=== PATIENT | female | born 1995 | race Caucasian/White ===

== ENCOUNTER 2017-03-09 18:09 | Inpatient (IN) | payer OTHER ==
[~2017-03-09] VITALS: Ht 162.6 cm; Wt 86.0 kg
[2017-03-09] VITALS (65 sets, daily range): BP systolic 118–146; BP diastolic 68–95; PULSE 74–215; RESP 16–20; TEMP 98.2–99
[~2017-03-09 18:09] MED LIST: Z.0.NO CURRENT MEDS
[2017-03-09] MEDS ORDERED: PREN1TAB45 (19:03)
--- NOTE | 2017-03-09 19:04 | PD ---
HPI Chief Complaint SROM 40 weeks and 1 day Date Seen: Mar 09, 2017 Time Seen: 18:55 Travel History International Travel<30 Days: No Contact w/Intl Traveler<30Days: No Known Affected Area: No History of Present Illness HPI Pt is a 21 yo at 40 weeks and 1 day. Presents with SROM at 06:00 Pt reports active movements. No vaginal bleeding No fevers. care with Linda Alas. GBS negative. Weeks Gestation: 40 Para: 0 : 1 Last Menstrual Period: Jun 01, 2016 History Past Medical History Medical History: Denies Significant Hx Past Surgical History Surgical History: No Previous Surgery Family History Family History: Negative Social History Alcohol Use: No Tobacco Use: No Substance Abuse: No Allergies-Medications (Allergen,Severity, Reaction): Coded Allergies: No Known Allergies (Unverified , 09/20/11) Home Meds Reported Medications Miscellaneous (No Current Meds) Misc 09/20/11 Review of Systems Except as stated in HPI: all other systems reviewed are Neg Physical Exam Narrative GENERAL: Well-nourished, well-developed patient. SKIN: Warm and dry. HEAD: Normocephalic and atraumatic. EYES: No scleral icterus. No injection or drainage. ENT: No nasal drainage noted. Mucous membranes pink. Airway patent. NECK: Supple, trachea midline. No JVD. CARDIOVASCULAR: Regular rate and rhythm without murmurs, gallops, or rubs. RESPIRATORY: Breath sounds equal bilaterally. No accessory muscle use. BREASTS: Bilateral exam showed no masses , no retractions, no nipple discharge. ABDOMEN/GI: Abdomen soft, non-tender, bowel sounds present, no rebound, no guarding Gravid to [39] weeks size Fundal Height: [-] GENITOURINARY: External Genitalia: intact and normal in appearance BUS glands: [wnl] Cervix: [soft] Dilatation: [1cm] Effacement: [60%] Station: [-3] Presentation: [vertex] Membranes: [ruptured] Uterine Contractions: [rare-] FHT's: Category: [1] Baseline: [-] Reactive: [-] Variability: [-] Decels: [rare] EXTREMITIES: No cyanosis or edema. BACK: Nontender without obvious deformity. No CVA tenderness. NEUROLOGICAL: Awake and alert. Motor and sensory grossly within normal limits. Five out of 5 muscle strength in all muscle groups. Normal speech. Data Data Vital Signs Reviewed: Yes Group B Strep: Negative MDM Medical Record Reviewed: Yes Interpretation(s) Premature ruptured membranes at term. Plan 21 yo at 40 weeks and 1 day, with SROM. GBS negative. Minimal cervical dilatation. Admit for labor. Start Pitocin per protocol. Expectant. Attending Attestation Admitted to labor and delivery with expectation of at least 2 midnight stay Diagnosis Diagnosis: Primary Impression: Ruptured, membranes, premature Additional Impressions: 40 weeks gestation of Admitted to labor and delivery Roosevelt Rosario MD Mar 09, 2017 19:04
[2017-03-09] MEDS ORDERED: LACTATED RINGER'S 1000 ML INJ 1,000 ML IV PRN (19:08)
[2017-03-09] MEDS: LACTATED RINGER'S 1000 ML INJ 1,000 ML IV SCH ×2 (19:08→20:06)
[2017-03-09] MEDS ORDERED: SODIUM CHLORID 0.9% 500 ML INJ 500 ML IV PRN (19:15)
[2017-03-09] MEDS ORDERED: OXYTOCIN 30 UNITS-500ML PREMIX 500 ML IV ONE (19:15)
[2017-03-09] MEDS ORDERED: ONDANSETRON HCL 4 MG/2 ML VIAL IV PRN (19:15)
[2017-03-09] MEDS ORDERED: CITRIC ACID-SODIUM CITRATE LIQ 30 ML UDC PO SCH (19:15)
[2017-03-09] MEDS ORDERED: MINERAL OIL 10 ML VIAL TOPICAL PRN (19:15)
[2017-03-09] MEDS ORDERED: LIDOCAINE HCL 1% 50 ML VIAL I-DERMAL PRN (19:15)
[2017-03-09] MEDS ORDERED: LIDOCAINE HCL 1% 50 ML VIAL INFIL PRN (19:15)
[2017-03-09] MEDS ORDERED: OXYTOCIN 30 UNITS-500ML PREMIX 500 ML IV SCH (19:15)
--- NOTE | 2017-03-09 19:17 | HHI.HP ---
HPI Chief Complaint SROM at 06:00 03-09-2017 40 weeks and 1 day gestation Travel History International Travel<30 Days: No Contact w/Intl Traveler<30Days: No Known Affected Area: No History of Present Illness HPI Pt is a 21 yo at 40 weeks and 1 day. Presents with SROM at 06:00 Pt reports active movements. No vaginal bleeding No fevers. care with Linda Alas. GBS negative. Weeks Gestation: 40 Para: 0 : 1 Last Menstrual Period: Jun 01, 2016 History Past Medical History Medical History: Denies Significant Hx Past Surgical History Surgical History: No Previous Surgery Family History Family History: Negative Social History Alcohol Use: No Tobacco Use: No Substance Abuse: No Allergies-Medications (Allergen,Severity, Reaction): Coded Allergies: No Known Allergies (Unverified , 03/09/17) Home Meds Reported Medications Vit W/ Iron Carbonyl- (Pnv Tabs 29-1 29-1 mg) 29 Mg Iron-1 Mg Tab 03/09/17 Discontinued Reported Medications Miscellaneous (No Current Meds) Misc 09/20/11 Review of Systems Except as stated in HPI: all other systems reviewed are Neg Physical Exam Narrative GENERAL: Well-nourished, well-developed patient. SKIN: Warm and dry. HEAD: Normocephalic and atraumatic. EYES: No scleral icterus. No injection or drainage. ENT: No nasal drainage noted. Mucous membranes pink. Airway patent. NECK: Supple, trachea midline. No JVD. CARDIOVASCULAR: Regular rate and rhythm without murmurs, gallops, or rubs. RESPIRATORY: Breath sounds equal bilaterally. No accessory muscle use. BREASTS: Bilateral exam showed no masses , no retractions, no nipple discharge. ABDOMEN/GI: Abdomen soft, non-tender, bowel sounds present, no rebound, no guarding Gravid to [-] weeks size Fundal Height: [39cm] GENITOURINARY: External Genitalia: intact and normal in appearance BUS glands: [wnl] Cervix: [soft] Dilatation: [1cm] Effacement: [60%] Station: [-3] Presentation: [vertex] Membranes: [ruptured] Uterine Contractions: [rare] FHT's: Category: [1] Baseline: [130] Reactive: [-] Variability: [-] Decels: [none] EXTREMITIES: No cyanosis or edema. BACK: Nontender without obvious deformity. No CVA tenderness. NEUROLOGICAL: Awake and alert. Motor and sensory grossly within normal limits. Five out of 5 muscle strength in all muscle groups. Normal speech. Caprini VTE Risk Assessment Caprini VTE Risk Assessment: No/Low Risk (score <= 1) Caprini Risk Assessment Model Point Value = 1 Point Value = 2 Point Value = 3 Point Value = 5 Age 41-60 Minor surgery BMI > 25 kg/m2 Swollen legs Varicose veins or History of unexplained or recurrent spontaneous Oral contraceptives or hormone replacement Sepsis (< 1 month) Serious lung disease, including pneumonia (< 1 month) Abnormal pulmonary function Acute myocardial infarction Congestive heart failure (< 1 month) History of inflammatory bowel disease Medical patient at bed rest Age 61-74 Arthroscopic surgery Major open surgery (> 45 min) Laparoscopic surgery (> 45 min) Malignancy Confined to bed (> 72 hours) Immobilizing plaster cast Central venous access Age >= 75 History of VTE Family history of VTE Factor V Leiden Prothrombin [id number] Lupus anticoagulant Anticardiolipin antibodies Elevated serum homocysteine Heparin-induced thrombocytopenia Other congenital or acquired thrombophilia Stroke (< 1 month) Elective arthroplasty Hip, pelvis, or leg fracture Acute spinal cord injury (< 1 month) Prophylaxis Regimen Total Risk Factor Score Risk Level Prophylaxis Regimen 0-1 Low Early ambulation 2 Moderate Order ONE of the following: *Sequential Compression Device (SCD) *Heparin 5000 units SQ BID 3-4 Higher Order ONE of the following medications: *Heparin 5000 units SQ TID *Enoxaparin/Lovenox 40 mg SQ daily (WT < 150 kg, CrCl > 30 mL/min) *Enoxaparin/Lovenox 30 mg SQ daily (WT < 150 kg, CrCl > 10-29 mL/min) *Enoxaparin/Lovenox 30 mg SQ BID (WT < 150 kg, CrCl > 30 mL/min) AND/OR *Sequential Compression Device (SCD) 5 or more Highest Order ONE of the following medications: *Heparin 5000 units SQ TID (Preferred with Epidurals) *Enoxaparin/Lovenox 40 mg SQ daily (WT < 150 kg, CrCl > 30 mL/min) *Enoxaparin/Lovenox 30 mg SQ daily (WT < 150 kg, CrCl > 10-29 mL/min) *Enoxaparin/Lovenox 30 mg SQ BID (WT < 150 kg, CrCl > 30 mL/min) AND *Sequential Compression Device (SCD) Data Data Vital Signs Reviewed: Yes Orders Orders Ob (2e) Additional Admit Info (03/09/17 18:58) Vital Signs (Adult) .ON ADMISSION (03/09/17 19:05) ^ Labor Status (03/09/17 19:05) Urinalysis - C+S If Indicated (03/09/17 19:05) ^ Non Stress Test (03/09/17 19:05) Diet Liquid (03/10/17 Breakfast) Cbc No Diff, Includes Plts (03/09/17 19:05) Type And Screen (03/09/17 19:05) Lactated Ringer's 1000 Ml Inj (Lr 1000 M (03/09/17 19:05) Group B Strep: Negative Assessment/Plan Assessment and Plan Term SROM, premature at 06:00 03-09-2017 Rare contractions Minimal cervical dilatation. GBS negative. Admit for labor/delivery. Pitocin per protocol. Roosevelt Rosario MD Mar 09, 2017 19:17
[2017-03-09] MEDS ORDERED: SODIUM CHLOR 0.9% 1000 ML INJ 1,000 ML IV PRN (19:28)
[2017-03-09 19:50] LABS: BLOOD, URINE NEG (NEG); COMMENT (UR) CULT NOT INDICATED; CULTURE IF INDICATED CULT NOT INDICATED; GLUCOSE,URINE NEG (NEG); KETONE, URINE NEG (NEG); NITRITE,URINE NEG (NEG); PH, URINE 6.5 (5.0-8.5); SQUAMOUS EPITHELIAL CELL URINE 1 /hpf (0-5); TRANSITIONAL EPI CELLS, URINE 1 /hpf; URINE COLOR YELLOW (YELLW/STRAW)
[2017-03-09 19:52] LABS: HEMATOCRIT 34.4 % (35.0-46.0); MEAN CELL VOLUME 93.9 FL (80.0-100.0); MEAN CORPUSCULAR HEMOGLOBIN 31.5 PG (27.0-34.0); MEAN CORPUSCULAR HGB CONC 33.6 % (32.0-36.0); PLATELET COUNT 272 TH/MM3 (150-450); RED BLOOD COUNT 3.66 MIL/MM3 (4.00-5.30); RED CELL DISTRIBUTION WIDTH 14.5 % (11.6-17.2); REVIEW FLAG FINAL; WHITE BLOOD COUNT 11.3 TH/MM3 (4.0-11.0)
--- NOTE | 2017-03-09 23:54 | PD.LABORPN ---
Subjective Subjective Feels contractions, painful Objective Vital Signs Vital Signs Date Time Temp Pulse Resp B/P (MAP) Pulse Ox O2 Delivery O2 Flow Rate FiO2 03/09/17 23:35 103 03/09/17 23:30 99 03/09/17 23:30 215 131/89 (103) 03/09/17 23:25 103 03/09/17 23:20 99 03/09/17 23:15 74 03/09/17 23:15 206 119/73 (88) 03/09/17 23:10 75 03/09/17 23:00 98 128/83 (98) 03/09/17 23:00 105 03/09/17 23:00 20 03/09/17 22:55 107 03/09/17 22:53 100 130/77 (94) 03/09/17 22:50 106 03/09/17 22:48 106 140/95 (110) 03/09/17 22:47 20 03/09/17 22:46 98.5 03/09/17 22:46 104 142/94 (110) 03/09/17 22:45 109 146/94 (111) 03/09/17 22:40 78 03/09/17 22:34 16 03/09/17 22:33 97 131/86 (101) 03/09/17 22:30 99 03/09/17 22:30 102 137/95 (109) 03/09/17 22:25 74 03/09/17 22:20 98 03/09/17 22:15 88 140/92 (108) 03/09/17 22:15 96 03/09/17 22:10 92 03/09/17 22:06 81 134/84 (101) 03/09/17 22:05 95 03/09/17 21:55 98 03/09/17 21:50 91 03/09/17 21:45 91 145/92 (109) 03/09/17 21:42 99.0 16 03/09/17 21:40 101 03/09/17 21:35 96 03/09/17 21:30 93 03/09/17 21:30 97 138/90 (106) 03/09/17 21:25 95 03/09/17 21:20 95 03/09/17 21:15 92 126/79 (95) 03/09/17 21:10 98 03/09/17 21:01 100 134/82 (99) 03/09/17 20:55 91 03/09/17 20:50 98 03/09/17 20:45 86 137/77 (97) 03/09/17 20:45 90 03/09/17 20:35 179 03/09/17 20:31 92 118/82 (94) 03/09/17 20:30 97 03/09/17 20:20 97 03/09/17 20:15 98 133/68 (89) 03/09/17 20:15 93 03/09/17 20:11 103 129/83 (98) 03/09/17 20:10 104 03/09/17 20:05 97 03/09/17 20:00 101 03/09/17 20:00 16 03/09/17 19:58 98.2 03/09/17 19:55 97 03/09/17 19:50 99 03/09/17 19:49 99 135/79 (97) 03/09/17 19:45 106 18 03/09/17 19:40 107 03/09/17 19:35 105 03/09/17 19:30 105 03/09/17 19:25 106 03/09/17 19:20 105 03/09/17 19:05 109 03/09/17 18:55 106 03/09/17 18:40 108 Objective Pelvic Exam: Cervix: [soft] Dilatation: [3-4cm] Effacement: [80%] Station: [-3] Presentation: [-] Membranes: [ ruptured] Uterine Contractions: [2-3 minutes] FHT's: Category: [1] Baseline: [130s] Reactive: [-] Variability: [moderate] Decels: [none] Weeks Gestation: 40 Gest Age Assessed Date: Mar 09, 2017 Gest Age Assessed Time: 21:00 Pt started active labor?: Yes Active labor start date: Mar 09, 2017 Active labor start time: 23:30 Medical induction of labor?: No Artificial rupture of membrane: No Assessment/Plan Assessment and Plan Term labor. Continue Pitocin per protocol Roosevelt Rosario MD Mar 09, 2017 23:54
[2017-03-10] VITALS (66 sets, daily range): BP systolic 98–155; BP diastolic 54–97; PULSE 43–190; RESP 16–20; TEMP 97.8–99.2
[2017-03-10] MEDS: LACTATED RINGER'S 1000 ML INJ 1,000 ML IV SCH ×2 (03:05→03:08)
--- NOTE | 2017-03-10 05:43 | PD.OB.DELI ---
Weeks gestation: 40 Gest age assessed date: Mar 09, 2017 Gest age assessed time: 21:00 Pt started active labor?: Yes Active labor start date: Mar 09, 2017 Active labor start time: 23:30 Medical induction of labor?: No Artificial rupture of membrane: No Anesthesia: None Episiotomy: Left mediolateral Vaginal Delivery: Normal, Spontaneous Presentation: Occiput anterior Nuchal Cord: None Delayed cord clamping (45 sec): Yes Infant: Female Delivery date: Mar 10, 2017 Delivery time: 05:20 One Minute : 9 Five Minute : 9 Weight: 2800g Placenta: Spontaneous delivery, 3 vessel cord Laceration: Episiotomy, 1 deg Repair: Vicryl running Estimated blood loss: 200cc Roosevelt Rosario MD Mar 10, 2017 05:43
[2017-03-10] MEDS ORDERED: SODIUM CHLORIDE 0.9% FLUSH 10 ML FLUSH IV FLUSH PRN ×2 (05:45)
[2017-03-10] MEDS ORDERED: OXYTOCIN 30 UNITS-500ML PREMIX 500 ML IV SCH (05:45)
[2017-03-10] MEDS ORDERED: ZOLPIDEM TARTRATE 5 MG TAB PO PRN (05:45)
[2017-03-10] MEDS ORDERED: IBUPROFEN 600 MG TAB PO PRN (05:45)
[2017-03-10] MEDS ORDERED: oxyCODONE/ACETAMINOPHEN 5 MG/325 MG TAB PO PRN (05:45)
[2017-03-10] MEDS ORDERED: ALUMINUM/MAGNESIUM/SIMETH 30 ML CUP PO PRN (05:45)
[2017-03-10] MEDS ORDERED: ONDANSETRON ODT 4 MG TAB PO PRN (05:45)
[2017-03-10] MEDS ORDERED: DOCUSATE SODIUM 50 MG/SENNA 8.6 MG TAB PO PRN (05:45)
[2017-03-10] MEDS ORDERED: ACETAMINOPHEN 325 MG TAB PO PRN (05:45)
[2017-03-10] MEDS: WITCH HAZEL 50%/GLYCERIN 12.5% 40 PAD JAR TOPICAL PRN (14:45)
[2017-03-10] MEDS: BENZOCAINE 20% TOPICAL SPRAY 60 ML CAN TOPICAL PRN (14:45)
[2017-03-10] MEDS ORDERED: MEASLES, MUMPS, RUBELLA VACCINE 0.5 ML VIAL SQ ONE (16:00)
[2017-03-10] MEDS ORDERED: DIPHTH/TETANUS/ACEL PERTUSSIS (BOOSTER) 0.5 ML VIAL/PFS IM ONE (16:00)
--- NOTE | 2017-03-11 07:11 | HHI.OB ---
Subjective Post Day: 1 Remarks Pt seen and examined this morning. day # 1 AFVSS overnight. Decreased lochia. Denies dysuria. No breast tenderness. She is feeding the baby via breast and model. Appetite good. No nausea or vomiting. Patient has had a bowel movement. Ambulating well. Denies calf pain or shortness of breath. Otherwise, she is doing well this morning and has no other concerns. Objective Vitals/I&O Vital Signs Date Time Temp Pulse Resp B/P (MAP) Pulse Ox O2 Delivery O2 Flow Rate FiO2 03/10/17 20:05 99.2 79 20 111/58 (75) 03/10/17 11:48 98.9 93 18 112/65 (81) 03/10/17 08:00 98.7 87 16 03/10/17 08:00 108/59 (75) 03/10/17 07:16 71 20 121/65 (83) Objective Remarks GENERAL: Well-nourished, well-developed patient. CARDIOVASCULAR: Regular rate and rhythm without murmurs, gallops, or rubs. RESPIRATORY: Breath sounds equal bilaterally. No accessory muscle use. ABDOMEN/GI: Abdomen soft, non-tender. Fundus: Firm, non-tender at umbilicus. GENITOURINARY: Light to moderate bleeding. EXTREMITIES: No cyanosis or edema, non-tender, without signs of DVT. Medications and IVs Current Medications Medications (Trade) Dose Ordered Sig/Jian Route Start Time Stop Time Status Last Admin Lactated Ringer's 1,000 ml @ 125 mls/hr Q8H IV 03/09/17 19:05 03/10/17 03:05 Lactated Ringer's 1,000 ml @ 125 mls/hr Q8H IV 03/09/17 19:08 Lactated Ringer's 1,000 ml @ 3,000 mls/hr Q20M PRN IV 03/09/17 19:08 Sodium Chloride 500 ml @ 1,000 mls/hr ONCE PRN IV 03/09/17 19:15 03/12/17 19:14 Sodium Chloride 1,000 ml @ 100 mls/hr Q10H PRN IV 03/09/17 19:28 (Xylocaine 1% Inj (50 ml)) 0.1 ml UNSCH X1 PRN I-DERMAL 9/17/17 19:15 03/12/17 19:14 (Bicitra Liq) 30 ml APPLIQUER ZIGZAG PO 03/09/17 19:15 03/13/17 19:14 (Zofran Inj) 4 mg Q6H PRN IV 03/09/17 19:15 (fentaNYL INJ) 50 mcg Q1H PRN IV PUSH 03/09/17 19:15 (fentaNYL INJ) 100 mcg Q1H PRN IV PUSH 03/09/17 19:15 (Xylocaine 1% Inj (50 ml)) 10 ml UNSCH X1 PRN INFIL 03/09/17 19:15 03/11/17 19:14 (Muri-Lube Oil) 10 ml UNSCH PRN TOPICAL 03/09/17 19:15 Oxytocin 500 ml @ 0 mls/hr TITRATE IV 03/09/17 19:15 03/09/17 20:06 (NS Flush) 2 ml UNSCH PRN IV FLUSH 03/10/17 05:45 (Tylenol) 650 mg Q4H PRN PO 03/10/17 05:45 (Motrin) 600 mg Q6H PRN PO 03/10/17 05:45 (Percocet 5-325 Mg) 1 tab Q4H PRN PO 03/10/17 05:45 (Americaine 20% Top Spr) 1 spray Q4H PRN TOPICAL 03/10/17 05:45 03/10/17 14:45 (Tucks Pads) 1 applic QID PRN TOPICAL 03/10/17 05:45 03/10/17 14:45 (Wilma-Colace) 2 tab Q12H PRN PO 03/10/17 05:45 (Ambien) 5 mg HS PRN PO 03/10/17 05:45 (Mag-Al Plus Susp Liq) 15 ml Q8H PRN PO 03/10/17 05:45 (Zofran Odt) 4 mg Q6H PRN PO 03/10/17 05:45 (NS Flush) 2 ml UNSCH PRN IV FLUSH 03/10/17 05:45 Assessment/Plan Problem List: (1) (spontaneous vaginal delivery) ICD Codes: O80 - Encounter for full-term uncomplicated delivery Assessment and Plan 21 y/o female who is day # 1 s/p . -Continue routine care. -Motrin PRN pain. -Encouraged OOB. Advised pelvic rest for 6 wks. -Re: ctrl, she would like to discuss her options at her follow-up appointment. -Anticipate discharge tomorrow pending clinical course. adriel Liang MD Discharge Planning Tomorrow pending clinical course Uche Salgado MD R2 Mar 11, 2017 07:11
[2017-03-11] MEDS: LACTATED RINGER'S 1000 ML INJ 1,000 ML IV SCH ×2 (11:05→11:08)
[2017-03-11] MEDS: BENZOCAINE 20% TOPICAL SPRAY 60 ML CAN TOPICAL PRN (20:53)
[2017-03-11] MEDS: WITCH HAZEL 50%/GLYCERIN 12.5% 40 PAD JAR TOPICAL PRN (20:53)
[2017-03-12] MEDS ORDERED: IBUP-232 PO (07:12)
[2017-03-12] MEDS ORDERED: SENN1TAB PO (07:12)
--- NOTE | 2017-03-12 07:15 | HHI.DCPOC ---
Discharge Care Plan Diagnosis: (1) (spontaneous vaginal delivery) Report Symptoms to Your Doctor -Temperature above 100.5 degrees -Redness, of incision or excessive or foul smelling drainage -Unusual pain or calf pain -Increased vaginal bleeding -Painful or difficulty urinating -Feelings of extreme sadness or anxiety after 2 weeks Goals to Promote Your Health * To prevent worsening of your condition and complications * To maintain your health at the optimal level Directions to Meet Your Goals Take your medications as prescribed Follow your dietary instruction Follow activity as directed Ensure plenty of rest for recovery Drink fluids for hydration Keep your appointments as scheduled Take your immunizations and boosters as scheduled If your symptoms worsen call your PCP, if no PCP go to Urgent Care Center or Emergency Room Smoking is Dangerous to Your Health. Avoid second hand smoke Call the 24-hour crisis hotline for domestic abuse at Uche Salgado MD R2 Mar 12, 2017 07:15
--- NOTE | 2017-03-12 07:17 | HHI.OB ---
Subjective Post Day: 2 Remarks Pt seen and examined this morning. day # 2 AFVSS overnight. Decreased lochia. Denies dysuria. No breast tenderness. She is feeding the baby via breast and model. Appetite good. No nausea or vomiting. Patient has had a bowel movement. Ambulating well. Denies calf pain or shortness of breath. Otherwise, she is doing well this morning and has no other concerns. Objective Objective Remarks GENERAL: Well-nourished, well-developed patient. CARDIOVASCULAR: Regular rate and rhythm without murmurs, gallops, or rubs. RESPIRATORY: Breath sounds equal bilaterally. No accessory muscle use. ABDOMEN/GI: Abdomen soft, non-tender. Fundus: Firm, non-tender at umbilicus. GENITOURINARY: Light to moderate bleeding. EXTREMITIES: No cyanosis or edema, non-tender, without signs of DVT. Medications and IVs Current Medications Medications (Trade) Dose Ordered Sig/Jian Route Start Time Stop Time Status Last Admin Lactated Ringer's 1,000 ml @ 125 mls/hr Q8H IV 03/09/17 19:05 03/10/17 03:05 Lactated Ringer's 1,000 ml @ 125 mls/hr Q8H IV 03/09/17 19:08 Lactated Ringer's 1,000 ml @ 3,000 mls/hr Q20M PRN IV 03/09/17 19:08 Sodium Chloride 500 ml @ 1,000 mls/hr ONCE PRN IV 03/09/17 19:15 03/12/17 19:14 Sodium Chloride 1,000 ml @ 100 mls/hr Q10H PRN IV 03/09/17 19:28 (Xylocaine 1% Inj (50 ml)) 0.1 ml UNSCH X1 PRN I-DERMAL 03/09/17 19:15 03/12/17 19:14 (Bicitra Liq) 30 ml A[employer] TECHNICIAN PO 03/09/17 19:15 03/13/17 19:14 (Zofran Inj) 4 mg Q6H PRN IV 03/09/17 19:15 (fentaNYL INJ) 50 mcg Q1H PRN IV PUSH 03/09/17 19:15 (fentaNYL INJ) 100 mcg Q1H PRN IV PUSH 03/09/17 19:15 (Muri-Lube Oil) 10 ml UNSCH PRN TOPICAL 03/09/17 19:15 Oxytocin 500 ml @ 0 mls/hr TITRATE IV 03/09/17 19:15 03/09/17 20:06 (NS Flush) 2 ml UNSCH PRN IV FLUSH 03/10/17 05:45 (Tylenol) 650 mg Q4H PRN PO 03/10/17 05:45 (Motrin) 600 mg Q6H PRN PO 03/10/17 05:45 (Percocet 5-325 Mg) 1 tab Q4H PRN PO 03/10/17 05:45 (Americaine 20% Top Spr) 1 spray Q4H PRN TOPICAL 03/10/17 05:45 03/11/17 20:53 (Tucks Pads) 1 applic QID PRN TOPICAL 03/10/17 05:45 03/11/17 20:53 (Wilma-Colace) 2 tab Q12H PRN PO 03/10/17 05:45 (Ambien) 5 mg HS PRN PO 03/10/17 05:45 (Mag-Al Plus Susp Liq) 15 ml Q8H PRN PO 03/10/17 05:45 (Zofran Odt) 4 mg Q6H PRN PO 03/10/17 05:45 (NS Flush) 2 ml UNSCH PRN IV FLUSH 03/10/17 05:45 Assessment/Plan Problem List: (1) (spontaneous vaginal delivery) ICD Codes: O80 - Encounter for full-term uncomplicated delivery Assessment and Plan 21 y/o female who is day # 2 s/p . -Continue routine care. -Motrin PRN pain. -Encouraged OOB. Advised pelvic rest for 6 wks. -Re: ctrl, she would like to discuss her options at her follow-up appointment. -Discharge: Today with baby. adriel Sheppard MD Discharge Planning Today with baby Uche Salgado MD R2 Mar 12, 2017 07:17
[2017-03-12] MEDS ORDERED: BREAST PUMP1 MI1 (13:48)
== END 2017-03-12 14:15 | disposition home or self-care (01) | DRG 775 ==
LOC: HOBED 18:09 → H2EB 18:58 → H1EA 03-10 07:34
PROVIDERS: ADMIT Obstetrics & Gynecology; ATTEND Obstetrics & Gynecology
PROC: 10E0XZZ Delivery of Products of Conception, External Approach (ICD-10-PCS; principal; 2017-03-10)
PROC: 0HQ9XZZ Repair Perineum Skin, External Approach (ICD-10-PCS; 2017-03-10)
PROC: 0W8NXZZ Division of Female Perineum, External Approach (ICD-10-PCS; 2017-03-10)
DX: O70.0 First degree perineal laceration during delivery (principal); Z37.0 Single live birth; Z3A.40 40 weeks gestation of pregnancy
CPT/HCPCS: 59025; 81001; 84112; 85027; 86900; 86901; J2590; J7120